=== PATIENT | male | born 1940 | race Caucasian/White ===

== ENCOUNTER 2020-09-19 08:35 | Outpatient (REF) | payer MEDICARE, SELFPAY ==
[2020-09-19 11:40] LABS: Hematocrit 47.9 % (42-52); Hemoglobin 15.6 g/dl (14.0-18.0); Mean Corpuscular HGB Conc 32.6 g/dl (31.0-36.0); Mean Corpuscular Hemoglobin 30.2 pg (27.0-33.0); Mean Corpuscular Volume 92.8 fL (80-98); Mean Platelet Volume 9.7 fL (9.4-12.4); Platelet Count 221 X10*3/uL (160-400); Red Blood Count 5.16 X10*6/uL (4.60-5.80); Red Cell Distribution Width 12.5 % (11.0-16.0); White Blood Count 6.8 X10*3/uL (4.8-10.8)
[2020-09-19 12:22] LABS: Alanine Aminotransferase 14 U/L (0-40); Albumin Level 4.2 g/dL (3.5-5.0); Alkaline Phosphatase 95 U/L (39-117); Anion Gap 14 (12-20); Aspartate Amino Transferase 15 U/L (5-37); Bilirubin Total 0.7 mg/dL (0.0-1.0); Blood Urea Nitrogen 16 mg/dL (9-16); Calcium 8.9 mg/dL (8.4-10.2); Carbon Dioxide 24 mmol/L (22-29); Chloride 105 mmol/L (96-108); Cholesterol 162 mg/dL; Estimated Glomerular Filt Rate > 60; Glucose Fasting 112 mg/dL (60-99); HDL Cholesterol 39 mg/dL; LDL Cholesterol Calculated 105 mg/dl; Potassium 4.4 mmol/L (3.3-5.1); Sodium 139 mmol/L (135-145); Triglycerides 94 mg/dL
[2020-09-19 12:46] LABS: Creatinine Urine 182.48 mg/dL; Microalbum/Creatinine Ratio Ur 5.4 ug/mg cr
[2020-09-19 12:58] LABS: Estimated Average Glucose 126 mg/dL
== END 2020-09-19 08:36 | disposition home or self-care (01) ==
LOC: HO.HMGCLDS 08:35
PROVIDERS: PCP Internal Medicine; Visit Provider Internal Medicine
DX: I10 Essential (primary) hypertension (principal); R73.9 Hyperglycemia, unspecified; E78.5 Hyperlipidemia, unspecified
CPT/HCPCS: 36415; 80053; 80061; 82043; 83036; 85027

== ENCOUNTER 2021-04-26 10:59 | Outpatient (REF) | payer MEDICARE, SELFPAY ==
[2021-04-26 14:18] LABS: Estimated Average Glucose 123 mg/dL; Hemoglobin A1c % 5.9 %
[2021-04-26 14:24] LABS: Alanine Aminotransferase 17 U/L (0-40); Albumin Level 4.3 g/dL (3.5-5.0); Alkaline Phosphatase 98 U/L (39-117); Anion Gap 10 (12-20); Aspartate Amino Transferase 15 U/L (5-37); Bilirubin Total 0.9 mg/dL (0.0-1.0); Blood Urea Nitrogen 19 mg/dL (9-16); Calcium 9.5 mg/dL (8.4-10.2); Carbon Dioxide 29 mmol/L (22-29); Chloride 104 mmol/L (96-108); Cholesterol 184 mg/dL; Estimated Glomerular Filt Rate > 60; Glucose Fasting 105 mg/dL (60-99); HDL Cholesterol 37 mg/dL; LDL Cholesterol Calculated 122 mg/dl; Potassium 4.3 mmol/L (3.3-5.1); Sodium 139 mmol/L (135-145); Total Protein 7.4 g/dL (6.5-8.0); Triglycerides 126 mg/dL
== END 2021-04-26 11:00 | disposition home or self-care (01) ==
LOC: HO.HMGCLDS 10:59
PROVIDERS: PCP Internal Medicine; Visit Provider Internal Medicine
DX: E78.5 Hyperlipidemia, unspecified (principal); I10 Essential (primary) hypertension; J44.9 Chronic obstructive pulmonary disease, unspecified; R73.9 Hyperglycemia, unspecified
CPT/HCPCS: 36415; 80053; 80061; 83036

== ENCOUNTER 2021-10-25 10:36 | Outpatient (REF) | payer MEDICARE, SELFPAY ==
[2021-10-25 13:43] LABS: MANUAL DIFF FLAG NO
[2021-10-25 13:56] LABS: Estimated Average Glucose 128 mg/dL; Hemoglobin A1c % 6.1 %
[2021-10-25 13:58] LABS: Basophils Percent Auto 0.6 % (0-2); Eosinophils Absolute Auto 0.1 X10*3/uL (0.0-0.4); Eosinophils Percent Auto 1.9 % (0-4); Hematocrit 46.9 % (42.0-52.0); Imm Gran Abs Auto 0.02 X10*3/uL (0.00-0.03); Imm Gran Pct Auto 0.4 % (0.0-0.4); Lymphocytes Absolute Auto 1.4 X10*3/uL (1.2-4.9); Lymphocytes Percent Auto 27.5 % (20-40); Mean Corpuscular Hemoglobin 29.9 pg (27.0-33.0); Mean Corpuscular Volume 93.6 fL (80.0-98.0); Mean Platelet Volume 9.8 fL (9.4-12.4); Monocytes Absolute Auto 0.5 X10*3/uL (0.1-1.2); Monocytes Percent Auto 10.3 % (2-11); Neutrophils Absolute Auto 3.1 x10*3/uL (2.0-8.3); Neutrophils Percent Auto 59.3 % (45-73); Platelet Count 198 X10*3/uL (160-400); Red Blood Count 5.01 X10*6/uL (4.60-5.80); Red Cell Distribution Width 13.1 % (11.0-16.0); White Blood Count 5.2 X10*3/uL (4.8-10.8)
[2021-10-25 14:05] LABS: Appearance Urine CLEAR; Color Urine YELLOW; Glucose Urine UA NEG (NEG); Leukocyte Esterase Urine NEG (NEG); Nitrite Urine NEG (NEG); PH 5.5 (5.0-8.0); Urine Blood 1+ (NEG); Urine Ketones NEG (NEG); Urine Protein NEG (NEG-TRACE)
[2021-10-25 14:15] LABS: Alanine Aminotransferase 26 U/L (0-40); Albumin Level 4.3 g/dL (3.5-5.0); Alkaline Phosphatase 86 U/L (39-117); Anion Gap 12 (12-20); Aspartate Amino Transferase 23 U/L (5-37); Blood Urea Nitrogen 16 mg/dL (9-16); Calcium 9.3 mg/dL (8.4-10.2); Carbon Dioxide 27 mmol/L (22-29); Chloride 105 mmol/L (96-108); Cholesterol 155 mg/dL; Estimated Glomerular Filt Rate > 60; Glucose Fasting 109 mg/dL (60-99); HDL Cholesterol 40 mg/dL; LDL Cholesterol Calculated 95 mg/dl; Potassium 4.8 mmol/L (3.3-5.1); Sodium 139 mmol/L (135-145); Total Protein 7.2 g/dL (6.5-8.0); Triglycerides 101 mg/dL
[2021-10-25 14:23] LABS: Squamous Epithelial Cell Urine TRACE /LPF; WBC Urine 0 /HPF (0-4)
== END 2021-10-25 10:37 | disposition home or self-care (01) ==
LOC: HO.HMGCLDS 10:36
PROVIDERS: PCP Internal Medicine; Visit Provider Internal Medicine
DX: I10 Essential (primary) hypertension (principal); J44.9 Chronic obstructive pulmonary disease, unspecified; R73.9 Hyperglycemia, unspecified; E78.5 Hyperlipidemia, unspecified
CPT/HCPCS: 36415; 80053; 80061; 81001; 83036; 85025

== ENCOUNTER 2023-01-24 11:15 | Outpatient (AMB) | payer MEDICARE, SELFPAY ==
[2023-01-24 12:15] VITALS: BP 120/80; PULSE 65; O2SAT 98; BMI 24.3
--- NOTE | 2023-01-24 12:15 | A.OFFPC_ITS ---
Vital Signs 01/24/23 12:15 Height 5 ft 10 in Weight 169 lb 8 oz BMI 24.3 BP 120/80 Blood Pressure Location Lt brachial Position Sitting Pulse 65 Pulse Source Pulse Oximeter Pulse Oximetry (%) 98 Oxygen Delivery Method Room Air Intake Visit Reasons: Follow up Health Concerns Allergies morphine Allergy (Severe, Verified 01/24/23 12:17) passed out Medication List - Last Reconciled 01/24/23 by Barbara Ray MD atorvastatin 40 mg PO DAILY lisinopril 10 mg PO DAILY omeprazole 20 mg PO DAILY tamsulosin 0.4 mg PO DAILY triamcinolone acetonide 0.1% APPLY topical 2 times a day; umeclidinium-vilanterol 62.5-25 mcg/actuation (Anoro Ellipta) 1 inh inhalation DAILY Tobacco use date assessed: 01/24/23 Fall risk assessment: No Falls in past year Last assessed Fall Risk: 01/24/23 Dental Screening Dental Screen Date: 01/24/23 Did you have a dental visit in the last 12 months?: Yes Did you have a dental problem in the last 6 months where you did not have access to dental care?: No Was dental information given to patient?: Patient has dentist HPI Follow up Health Concerns HPI Details Pt presents for the follow-up on hypertension hyperlipidemia controlled on current medications. Patient follows up with Cardiology at [facility] every 6 months for history of paroxysmal AFib and ascending aorta aneurysm. Patient has not been using Anoro regularly. [facility] Medical History GERD (gastroesophageal reflux disease) Abnormal colonoscopy CVA (cerebral vascular accident) Lung cancer AAA (abdominal aortic aneurysm) CAD (coronary artery disease) Syncope Peripheral artery disease COPD (chronic obstructive pulmonary disease) Hyperglycemia Hyperlipidemia Hypertension Surgical History No pertinent past surgical history Family History Father Unknown family medical history Mother Unknown family medical history Social History Housing: House Alcohol intake: current Alcohol intake frequency: does not drink Patient Tobacco Use Status: Former Tobacco user (19 years ago) e-Cigarette/Vaping Use: Never Used Current occupational status: retired Cognitive needs: No Hearing needs: Yes Vision needs: No Questionnaire PHQ-9 Over the last 2 weeks, how often have you been bothered by any of the following problems? 1. Little interest or pleasure in doing things: not at all 2. Feeling down, depressed, or hopeless: not at all 3. Trouble falling or staying asleep, or sleeping too much: not at all 4. Feeling tired or having little energy: not at all 5. Poor appetite or overeating: not at all 6. Feeling bad about yourself - or that you are a failure or have let yourself or your family down: not at all 7. Trouble concentrating on things, such as reading the newspaper or watching television: not at all 8. Moving or speaking so slowly that other people could have noticed. Or the opposite - being so fidgety or restless that you have been moving around a lot more than usual: not at all 9. Thoughts that you would be better off or of hurting yourself in some way: not at all Total score: 0 Depression Screening Interpretation: Negative Source: Developed by Drs. Umberto Limon, Lydia Sexton, Mauricio Holly and colleagues, with an educational bhumi from [employer]. Thrive Questionnaire Date Thrive assessed: 01/24/23 I am a: Patient What is your living situation today?: I have a steady place to live Within the past 12 months, did the food you bought not last and you didn't have the money to get more?: Never true Within the past 12 months, did you worry whether your food would run out before you got money to buy more?: Never true Do you have trouble paying for medicines?: No Do you have trouble getting transportation to medical appointments?: No Do you have trouble paying your heating and electricity bill?: No Do you have trouble taking care of your child, family member or friend?: No Do you have trouble with day-to-day activities such as bathing, preparing meals, shopping, managing finances, etc.?: No Are you currently unemployed and looking for a job?: No Are you interested in more education?: No Please select the resources that you would like help with: None AUDIT C Alcohol Use Questionnaire (AUDIT-C) 1. How often do you have a drink containing alcohol?: Never 3. How often do you have six or more drinks on one occasion?: Never Total Score: 0 FAMILIA-7 AMB Questionnaire FAMILIA-7 Date FAMILIA - 7 assessed: 01/24/23 Feeling nervous, anxious, or on edge: 0 = Not at all Not being able to stop or control worryin = Not at all Worrying too much about different things: 0 = Not at all Trouble relaxin = Not at all Being so restless that it is hard to sit still: 0 = Not at all Becoming easily annoyed or irritable: 0 = Not at all Feeling afraid as if something awful might happen: 0 = Not at all Total FAMILIA-7 score (0-4 normal; 5-9 mild; 10-14 moderate; 15-21 severe): 0 Source: Developed by Drs. Umberto Limon, Lydia Sexton, Mauricio Holly and colleagues, with an educational bhumi from [employer]. Review of Systems Const All systems reviewed & are unremarkable except as noted in HPI and below Reports no additional complaints Eyes Reports no additional complaints ENT Reports no additional complaints Card Reports no additional complaints Resp Reports no additional complaints GI Reports no additional complaints Physical exam (Primary Care) Vital Signs: Last Vital Signs Pulse 65 01/24/23 12:15 BP 152/88 H 01/24/23 12:15 Pulse Ox 98 01/24/23 12:15 Oxygen Delivery Method Room Air 01/24/23 12:15 BMI result Body Mass Index 24.3 Tobacco/Smoking Status: Tobacco use Status Tobacco use date assessed 01/24/23 01/24/23 12:21 Patient Tobacco Use Status Former Tobacco user (19 01/24/23 12:21 years ago) e-Cigarette/Vaping Use Never Used 01/24/23 12:21 PHQ-9: PHQ-9 Score PHQ-9: Total score 0 01/24/23 12:29 Depression Screening Interpretation: Negative Thrive Assessment: Date of Thrive Assessment Date Thrive assessed 01/24/23 01/24/23 12:29 Const General: no acute distress HENMT Head: Yes normal to inspection Eyes General: appearance normal, both eyes and all related structures Neck Neck: Yes supple Resp Effort & Inspection: normal respiratory effort Auscultation: wheezes and diminished lung sounds Cardio Rhythm: regular rhythm Heart sounds: S1 normal heart sound present and S2 normal heart sound present GI Inspection: Yes normal to inspection Palpation (GI): Soft to palpation Percussion: Yes normal to percussion Auscultation: normal bowel sounds Assessment and Plan Assessment & Plan (1) Hyperglycemia: Code(s): R73.9 - Hyperglycemia, unspecified Plan: Continue ADA diet check A1c (2) Hyperlipidemia: Code(s): E78.5 - Hyperlipidemia, unspecified Plan: Continue statin (3) Hypertension: Code(s): I10 - Essential (primary) hypertension Plan: Continue current medications Orders: Orders Comprehensive Met. Panel Today E78.5 - Hyperlipidemia, unspecified, I10 - Essential (primary) hypertension, R73.9 - Hyperglycemia, unspecified Complete Blood Count Auto Diff Today E78.5 - Hyperlipidemia, unspecified, I10 - Essential (primary) hypertension, R73.9 - Hyperglycemia, unspecified Hemoglobin A1c Today E78.5 - Hyperlipidemia, unspecified, I10 - Essential (primary) hypertension, R73.9 - Hyperglycemia, unspecified Medications: Refilled omeprazole 20 mg PO DAILY 90 caps 3RF tamsulosin 0.4 mg PO DAILY 90 caps 3RF triamcinolone acetonide 0.1% APPLY topical 2 times a day; 80 grams 3RF lisinopril 10 mg PO DAILY 90 tabs 3RF I10 - Essential (primary) hypertension atorvastatin 40 mg PO DAILY 90 tabs 3RF E78.5 - Hyperlipidemia, unspecified, I25.10 - Atherosclerotic heart disease of [place] coronary artery without angina pectoris Coding Level of Care Code Est Pt Level 4 (12565) Diagnoses Hyperglycemia R73.9 Hyperlipidemia E78.5 Hypertension I10
== END 2023-01-24 13:00 | disposition home or self-care (01) ==
PROVIDERS: PCP Internal Medicine; Visit Provider Internal Medicine
DX: R73.9 Hyperglycemia, unspecified (principal); E78.5 Hyperlipidemia, unspecified; I10 Essential (primary) hypertension
CPT/HCPCS: 99214

== ENCOUNTER 2023-01-25 06:26 | Outpatient (REF) | payer MEDICARE, SELFPAY ==
[2023-01-25 11:19] LABS: MANUAL DIFF FLAG NO
[2023-01-25 11:29] LABS: Appearance Urine Turbid; Color Urine Yellow; Glucose Urine UA Negative (Negative); Leukocyte Esterase Urine Negative (Negative); Nitrite Urine Negative (Negative); UMIC TRIGGER UA YES; Urine Blood Small (1+) (Negative); Urine Ketones Negative (Negative); Urine Protein Negative (Neg-Trace)
[2023-01-25 11:35] LABS: Bacteria Urine None Seen (None Seen); Hyaline Casts Urine 0-2 /LPF (0-2); Squamous Epithelial Cell Urine 0-2 /HPF (0-2); WBC Urine 0-5 /HPF (0-5)
[2023-01-25 11:39] LABS: Basophils Absolute Auto 0.1 X10*3/uL (0.0-0.2); Basophils Percent Auto 0.9 % (0-2); Eosinophils Absolute Auto 0.2 X10*3/uL (0.0-0.4); Eosinophils Percent Auto 3.1 % (0-4); Hematocrit 47.8 % (42.0-52.0); Hemoglobin 15.6 g/dl (14.0-18.0); Imm Gran Abs Auto 0.03 X10*3/uL (0.00-0.03); Imm Gran Pct Auto 0.5 % (0.0-0.4); Lymphocytes Absolute Auto 1.6 X10*3/uL (1.2-4.9); Lymphocytes Percent Auto 23.8 % (20-40); Mean Corpuscular HGB Conc 32.6 g/dl (31.0-36.0); Mean Corpuscular Volume 91.9 fL (80.0-98.0); Monocytes Absolute Auto 0.6 X10*3/uL (0.1-1.2); Monocytes Percent Auto 9.8 % (2-11); Neutrophils Percent Auto 61.9 % (45-73); Platelet Count 200 X10*3/uL (160-400); Red Cell Distribution Width 13.1 % (11.0-16.0); White Blood Count 6.5 X10*3/uL (4.8-10.8)
[2023-01-25 11:47] LABS: Estimated Average Glucose 117 mg/dL; Hemoglobin A1c % 5.7 % (<6.0)
[2023-01-25 12:37] LABS: PSA,Total (Free>4and<10) 4.03 ng/mL (0.00-4.00)
[2023-01-25 12:50] LABS: Alanine Aminotransferase 10 U/L (0-40); Alkaline Phosphatase 85 U/L (39-117); Anion Gap 11 (12-20); Aspartate Amino Transferase 15 U/L (5-37); Bilirubin Total 1.1 mg/dL (0.0-1.0); Blood Urea Nitrogen 14 mg/dL (9-16); Calcium 9.1 mg/dL (8.4-10.2); Carbon Dioxide 27 mmol/L (22-29); Chloride 107 mmol/L (96-108); Cholesterol 136 mg/dL (<200); Estimated Glomerular Filt Rate > 60; Glucose Fasting 98 mg/dL (60-99); Glucose Random 98 mg/dL (60-115); HDL Cholesterol 36 mg/dL (>40); LDL Cholesterol Calculated 80 mg/dL (<100); Potassium 4.2 mmol/L (3.3-5.1); Sodium 141 mmol/L (135-145); Total Protein 6.8 g/dL (6.5-8.0); Triglycerides 101 mg/dL (<150)
[2023-01-28 13:08] LABS: Free Prostate Spec Ag 0.6 ng/mL; Percent Free Prostate Spec Ag 17 % (calc) (>25); Prostate Specific Ag Total 3.5 ng/mL (< OR = 4.0)
== END 2023-01-25 06:27 | disposition home or self-care (01) ==
LOC: HO.HMGCLDS 06:26
PROVIDERS: PCP Internal Medicine; Visit Provider Internal Medicine
DX: I25.10 Atherosclerotic heart disease of native coronary artery without angina pectoris (principal); R73.9 Hyperglycemia, unspecified; E78.5 Hyperlipidemia, unspecified; I10 Essential (primary) hypertension; Z12.5 Encounter for screening for malignant neoplasm of prostate
CPT/HCPCS: 36415; 80053; 80061; 81001; 83036; 84153; 84154; 85025

== ENCOUNTER 2024-02-15 06:50 | Outpatient (REF) | payer MEDICARE, SELFPAY ==
[2024-02-15 11:08] LABS: MANUAL DIFF FLAG NO
[2024-02-15 11:11] LABS: Basophils Absolute Auto 0.1 X10*3/uL (0.0-0.2); Basophils Percent Auto 0.8 % (0-2); Eosinophils Absolute Auto 0.2 X10*3/uL (0.0-0.4); Eosinophils Percent Auto 2.6 % (0-4); Hematocrit 48.1 % (42.0-52.0); Hemoglobin 15.9 g/dl (14.0-18.0); Imm Gran Abs Auto 0.04 X10*3/uL (0.00-0.03); Imm Gran Pct Auto 0.6 % (0.0-0.4); Lymphocytes Absolute Auto 1.7 X10*3/uL (1.2-4.9); Lymphocytes Percent Auto 25.8 % (20-40); Mean Corpuscular HGB Conc 33.1 g/dl (31.0-36.0); Mean Corpuscular Hemoglobin 30.3 pg (27.0-33.0); Mean Corpuscular Volume 91.6 fL (80.0-98.0); Mean Platelet Volume 9.6 fL (9.4-12.4); Monocytes Absolute Auto 0.8 X10*3/uL (0.1-1.2); Monocytes Percent Auto 11.5 % (2-11); Neutrophils Absolute Auto 3.9 x10*3/uL (2.0-8.3); Neutrophils Percent Auto 58.7 % (45-73); Platelet Count 197 X10*3/uL (160-400); Red Blood Count 5.25 X10*6/uL (4.60-5.80); Red Cell Distribution Width 13.3 % (11.0-16.0); White Blood Count 6.6 X10*3/uL (4.8-10.8)
[2024-02-15 11:26] LABS: Appearance Urine Clear; Color Urine Yellow; Glucose Urine UA Negative (Negative); Leukocyte Esterase Urine Negative (Negative); Nitrite Urine Negative (Negative); PH 5.5 (5.0-9.0); Urine Blood Negative (Negative); Urine Ketones Negative (Negative); Urine Protein Negative (Neg-Trace)
[2024-02-15 12:12] LABS: Bacteria Urine None Seen (None Seen); Hyaline Casts Urine 0-2 /LPF (0-2); RBC Urine 0-2 /HPF (0-2); Squamous Epithelial Cell Urine 0-2 /HPF (0-2); WBC Urine 0-5 /HPF (0-5)
[2024-02-15 12:30] LABS: Alanine Aminotransferase 14 U/L (0-40); Alkaline Phosphatase 93 U/L (39-117); Anion Gap 12 (12-20); Aspartate Amino Transferase 15 U/L (5-37); Bilirubin Total 0.8 mg/dL (0.0-1.0); Blood Urea Nitrogen 20 mg/dL (9-16); Calcium 8.9 mg/dL (8.4-10.2); Carbon Dioxide 27 mmol/L (22-29); Chloride 106 mmol/L (96-108); Cholesterol 196 mg/dL (<200); Estimated Glomerular Filt Rate > 60; Glucose Fasting 106 mg/dL (60-99); HDL Cholesterol 35 mg/dL (>40); LDL Cholesterol Calculated 138 mg/dL (<100); Potassium 4.2 mmol/L (3.3-5.1); Sodium 141 mmol/L (135-145); Total Protein 6.7 g/dL (6.5-8.0); Triglycerides 119 mg/dL (<150)
== END 2024-02-15 06:51 | disposition home or self-care (01) ==
LOC: HO.HMGCLDS 06:50
PROVIDERS: PCP Internal Medicine; Visit Provider Internal Medicine
DX: R55 Syncope and collapse (principal); R73.9 Hyperglycemia, unspecified; E78.5 Hyperlipidemia, unspecified; I10 Essential (primary) hypertension
CPT/HCPCS: 36415; 80053; 80061; 81001; 85025

== ENCOUNTER 2024-02-18 10:38 | Outpatient (AMB) | payer MEDICARE, SELFPAY ==
[2024-02-18 10:46] VITALS: BP 128/66; PULSE 69; O2SAT 97; BMI 23.5
--- NOTE | 2024-02-18 10:46 | MHC.PC.OV ---
Vital Signs 02/18/24 10:46 Height 5 ft 10 in Weight 164 lb BMI 23.5 BP 128/66 Blood Pressure Location Rt brachial Position Sitting Pulse 69 Pulse Source Pulse Oximeter Pulse Oximetry (%) 97 Oxygen Delivery Method Room Air Intake Visit Reasons: Follow up Intake Note: Pt is here today for a follow up visit. Pt needs a refill on Omeprazole for 3 months supply with 3 refills. Allergies morphine Allergy (Severe, Verified 02/18/24 10:49) passed out Medication List - Last Reconciled 02/18/24 by Barbara Ray MD atorvastatin 40 mg PO DAILY lisinopril 10 mg PO DAILY omeprazole 20 mg PO DAILY tamsulosin 0.4 mg PO DAILY triamcinolone acetonide 0.1% APPLY topical 2 times a day; umeclidinium-vilanterol 62.5-25 mcg/actuation (Anoro Ellipta) 1 inh inhalation DAILY Tobacco use date assessed: 01/24/23 Fall risk assessment: No Falls in past year Last assessed Fall Risk: 02/18/24 Dental Screening Dental Screen Date: 02/18/24 Did you have a dental visit in the last 12 months?: Yes Did you have a dental problem in the last 6 months where you did not have access to dental care?: No Was dental information given to patient?: Patient has dentist HPI Follow up HPI Details Pt presents for f/u HTN, hyperlipid, COPD. PFSH Medical History GERD (gastroesophageal reflux disease) Abnormal colonoscopy CVA (cerebral vascular accident) Lung cancer AAA (abdominal aortic aneurysm) CAD (coronary artery disease) Syncope Peripheral artery disease COPD (chronic obstructive pulmonary disease) Hyperglycemia Hyperlipidemia Hypertension Surgical History No pertinent past surgical history Family History Father Unknown family medical history Mother Unknown family medical history Social History Housing: House Alcohol intake: current Alcohol intake frequency: does not drink Patient Tobacco Use Status: Former Tobacco user (19 years ago) e-Cigarette/Vaping Use: Never Used service: No Current occupational status: retired Cognitive needs: No Hearing needs: Yes Vision needs: No Questionnaire PHQ-9 Over the last 2 weeks, how often have you been bothered by any of the following problems? 1. Little interest or pleasure in doing things: not at all 2. Feeling down, depressed, or hopeless: not at all 3. Trouble falling or staying asleep, or sleeping too much: not at all 4. Feeling tired or having little energy: not at all 5. Poor appetite or overeating: not at all 6. Feeling bad about yourself - or that you are a failure or have let yourself or your family down: not at all 7. Trouble concentrating on things, such as reading the newspaper or watching television: not at all 8. Moving or speaking so slowly that other people could have noticed. Or the opposite - being so fidgety or restless that you have been moving around a lot more than usual: not at all 9. Thoughts that you would be better off or of hurting yourself in some way: not at all Total score: 0 Depression Screening Interpretation: Negative Depression Screening Done: Yes 29359 - PHQ-9 Billing: Yes Source: Developed by Drs. Umberto Limon, Lydia Sexton, Mauricio Holly and colleagues, with an educational bhumi from [employer]. Thrive Questionnaire Date Thrive assessed: 02/18/24 I am a: Patient What is your living situation today?: I have a steady place to live Within the past 12 months, did the food you bought not last and you didn't have the money to get more?: Never true Within the past 12 months, did you worry whether your food would run out before you got money to buy more?: Never true Do you have trouble paying for medicines?: No Do you have trouble getting transportation to medical appointments?: No Do you have trouble paying your heating and electricity bill?: No Do you have trouble taking care of your child, family member or friend?: No Do you have trouble with day-to-day activities such as bathing, preparing meals, shopping, managing finances, etc.?: No Are you currently unemployed and looking for a job?: No Are you interested in more education?: No Please select the resources that you would like help with: None Currently or been in a relationship where the following occur: No concerns reported THRIVE Score: 0 AUDIT C Alcohol Use Questionnaire (AUDIT-C) 1. How often do you have a drink containing alcohol?: Never 3. How often do you have six or more drinks on one occasion?: Never Total Score: 0 FAMILIA-7 AMB Questionnaire FAMILIA-7 Date FAMILIA - 7 assessed: 02/18/24 Feeling nervous, anxious, or on edge: 0 = Not at all Not being able to stop or control worryin = Not at all Worrying too much about different things: 0 = Not at all Trouble relaxin = Not at all Being so restless that it is hard to sit still: 0 = Not at all Becoming easily annoyed or irritable: 0 = Not at all Feeling afraid as if something awful might happen: 0 = Not at all Total FAMILIA-7 score (0-4 normal; 5-9 mild; 10-14 moderate; 15-21 severe): 0 Source: Developed by Drs. Umberto Limon, Lydia Sexton, Mauricio Holly and colleagues, with an educational bhumi from [employer]. FAMILIA-7 Assessment Billing FAMILIA-7 Assessment Tool: FAMILIA-7 Assessment 69046 Review of Systems Const All systems reviewed & are unremarkable except as noted in HPI and below Eyes Reports no additional complaints ENT Reports no additional complaints Card Reports no additional complaints Resp Reports no additional complaints GI Reports no additional complaints Reports no additional complaints Physical exam (Primary Care) Vital Signs: Last Vital Signs Pulse 69 02/18/24 10:46 BP 128/66 02/18/24 10:46 Pulse Ox 97 02/18/24 10:46 Oxygen Delivery Method Room Air 02/18/24 10:46 BMI result Body Mass Index 23.5 Tobacco/Smoking Status: Tobacco use Status Tobacco use date assessed 01/24/23 02/18/24 10:46 Patient Tobacco Use Status Former Tobacco user (19 02/18/24 10:46 years ago) e-Cigarette/Vaping Use Never Used 02/18/24 10:46 PHQ-9: PHQ-9 Score PHQ-9: Total score 0 02/18/24 11:28 Depression Screening Interpretation: Negative Thrive Assessment: Date of Thrive Assessment Date Thrive assessed 02/18/24 02/18/24 10:54 Currently or been in a relationship where the following occur: No concerns reported Const General: no acute distress HENMT Head: Yes normal to inspection Eyes General: appearance normal, both eyes and all related structures Resp Effort & Inspection: normal respiratory effort Auscultation: clear to auscultation bilaterally Cardio Rhythm: regular rhythm Heart sounds: S1 normal heart sound present and S2 normal heart sound present GI Inspection: Yes normal to inspection Palpation (GI): Soft to palpation Percussion: Yes normal to percussion Auscultation: normal bowel sounds Coding Level of Care Code Est Pt Level 4 (68450) Diagnoses CVA (cerebral vascular accident) I63.9 Lung cancer C34.90 AAA (abdominal aortic aneurysm) I71.4 Peripheral artery disease I73.9 COPD (chronic obstructive pulmonary disease) J44.9 Hyperlipidemia E78.5 Hypertension I10 Additional Codes FAMILIA-7 Assessment Billing - FAMILIA-7 Assessment Tool: FAMILIA-7 Assessment 60316 ([id number]) Assessment & Plan Assessment & Plan (1) CVA (cerebral vascular accident): Comment: right cerebellar, arachnoid cyst 1.[address]/MRI 2018 Code(s): I63.9 - Cerebral infarction, unspecified Category: Medical Plan: Continue aspirin and high dose of statin (2) Lung cancer: Comment: 2001 s/p lobectomy Code(s): C34.90 - Malignant neoplasm of unspecified part of unspecified bronchus or lung Category: Medical Plan: Cured (3) AAA (abdominal aortic aneurysm): Comment: EVAR 2014 , CT 09/2018 negative, f/u with Dr. Martin Doppler pantent stents 2020 Code(s): I71.4 - Abdominal aortic aneurysm, without rupture Category: Medical Plan: Follow-up with vascular surgeon (4) Peripheral artery disease: Code(s): I73.9 - Peripheral vascular disease, unspecified Category: Medical Plan: Follow-up with vascular surgeon (5) COPD (chronic obstructive pulmonary disease): Code(s): J44.9 - Chronic obstructive pulmonary disease, unspecified Category: Medical Plan: Patient declined using inhalers (6) Hyperlipidemia: Code(s): E78.5 - Hyperlipidemia, unspecified Category: Medical Plan: Continue statin (7) Hypertension: Code(s): I10 - Essential (primary) hypertension Category: Medical Plan: Continue lisinopril Orders: Orders Complete Blood Count Auto Diff 6 Months E78.5 - Hyperlipidemia, unspecified, I10 - Essential (primary) hypertension, R73.9 - Hyperglycemia, unspecified Comprehensive Cocoa. Panel Fast 6 Months E78.5 - Hyperlipidemia, unspecified, I10 - Essential (primary) hypertension, R73.9 - Hyperglycemia, unspecified Lipid Panel 6 Months E78.5 - Hyperlipidemia, unspecified, I10 - Essential (primary) hypertension, R73.9 - Hyperglycemia, unspecified Medications: Refilled omeprazole 20 mg PO DAILY 90 caps 3RF Discontinued umeclidinium-vilanterol 62.5-25 mcg/actuation (Anoro Ellipta) Discontinued Reason: Doctor's Order 1 inh inhalation DAILY 60 ea 4RF
== END 2024-02-18 11:34 | disposition home or self-care (01) ==
PROVIDERS: PCP Internal Medicine; Visit Provider Internal Medicine
DX: I71.40 Abdominal aortic aneurysm, without rupture, unspecified (principal); I73.9 Peripheral vascular disease, unspecified; J44.9 Chronic obstructive pulmonary disease, unspecified; C34.90 Malignant neoplasm of unspecified part of unspecified bronchus or lung; Z86.73 Personal history of transient ischemic attack (TIA), and cerebral infarction without residual deficits; E78.5 Hyperlipidemia, unspecified; I10 Essential (primary) hypertension

== ENCOUNTER → 2024-02-18 10:38 | Outpatient (BNVA) | payer MEDICARE, SELFPAY | PROVIDERS: PCP Internal Medicine; Visit Provider Internal Medicine | DX: I10 Essential (primary) hypertension (principal); I63.9 Cerebral infarction, unspecified; C34.90 Malignant neoplasm of unspecified part of unspecified bronchus or lung; I73.9 Peripheral vascular disease, unspecified; I71.40 Abdominal aortic aneurysm, without rupture, unspecified; J44.9 Chronic obstructive pulmonary disease, unspecified; E78.5 Hyperlipidemia, unspecified | CPT/HCPCS: 96127; 99212 ==

== ENCOUNTER 2024-08-18 10:58 | Outpatient (AMB) | payer MEDICARE, SELFPAY ==
[2024-08-18 11:30] VITALS: BP 124/74; PULSE 70; RESP 20; TEMP 36.7; O2SAT 95; BMI 24.4
--- NOTE | 2024-08-18 11:30 | MHC.PC.OV ---
Vital Signs 08/18/24 11:30 Height 5 ft 10 in Weight 170 lb BMI 24.4 BP 124/74 Blood Pressure Location Lt brachial Position Sitting Respiration 20 Pulse 70 Pulse Source Pulse Oximeter Temp 98.0 F Temp Source Oral Pulse Oximetry (%) 95 Oxygen Delivery Method Room Air Intake Visit Reasons: 6 months f/up Intake Note: Pt is here today for 6 months follow up visit. Pt needs refill on his medication. Pt states that he is fasting now and he would like to have blood work done today. Allergies morphine Allergy (Severe, Verified 08/18/24 11:30) passed out Medication List - Last Reconciled 08/18/24 by Barbara Ray MD atorvastatin 40 mg PO DAILY lisinopril 10 mg PO DAILY omeprazole 20 mg PO DAILY tamsulosin 0.4 mg PO DAILY triamcinolone acetonide 0.1% APPLY topical 2 times a day; Tobacco use date assessed: 08/18/24 Fall risk assessment: No Falls in past year Last assessed Fall Risk: 08/18/24 Dental Screening Dental Screen Date: 08/18/24 Did you have a dental visit in the last 12 months?: Yes Did you have a dental problem in the last 6 months where you did not have access to dental care?: No Was dental information given to patient?: Patient has dentist HPI 6 months f/up HPI Details Pt presents for f/u HTN, hyperlipid, BPH, stable on meds. Pt c/o sinus pressure and pain and postnasal drip for 1 month. Patient denies cough fever chills shortness of breath. PFSH Medical History GERD (gastroesophageal reflux disease) Abnormal colonoscopy CVA (cerebral vascular accident) Lung cancer AAA (abdominal aortic aneurysm) CAD (coronary artery disease) Syncope Peripheral artery disease COPD (chronic obstructive pulmonary disease) Hyperglycemia Hyperlipidemia Hypertension Surgical History No pertinent past surgical history Family History Father Unknown family medical history Mother Unknown family medical history Social History Housing: House Alcohol intake: current Alcohol intake frequency: does not drink Patient Tobacco Use Status: Former Tobacco user e-Cigarette/Vaping Use: Never Used service: No Current occupational status: retired Cognitive needs: No Hearing needs: Yes Vision needs: No Questionnaire PHQ-9 Over the last 2 weeks, how often have you been bothered by any of the following problems? 1. Little interest or pleasure in doing things: not at all 2. Feeling down, depressed, or hopeless: not at all 3. Trouble falling or staying asleep, or sleeping too much: not at all 4. Feeling tired or having little energy: not at all 5. Poor appetite or overeating: not at all 6. Feeling bad about yourself - or that you are a failure or have let yourself or your family down: not at all 7. Trouble concentrating on things, such as reading the newspaper or watching television: not at all 8. Moving or speaking so slowly that other people could have noticed. Or the opposite - being so fidgety or restless that you have been moving around a lot more than usual: not at all 9. Thoughts that you would be better off or of hurting yourself in some way: not at all Total score: 0 Depression Screening Interpretation: Negative Depression Screening Done: Yes 41041 - PHQ-9 Billing: Yes Source: Developed by Drs. Umberto Limon, Lydia Sexton, Mauricio Holly and colleagues, with an educational bhumi from [employer]. Thrive Questionnaire Date Thrive assessed: 08/18/24 I am a: Patient What is your living situation today?: I have a steady place to live Within the past 12 months, did the food you bought not last and you didn't have the money to get more?: Never true Within the past 12 months, did you worry whether your food would run out before you got money to buy more?: Never true Do you have trouble paying for medicines?: No Do you have trouble getting transportation to medical appointments?: No Do you have trouble paying your heating and electricity bill?: No Do you have trouble taking care of your child, family member or friend?: No Do you have trouble with day-to-day activities such as bathing, preparing meals, shopping, managing finances, etc.?: No Are you currently unemployed and looking for a job?: No Are you interested in more education?: No Please select the resources that you would like help with: None THRIVE Score: 0 AUDIT C Alcohol Use Questionnaire (AUDIT-C) 1. How often do you have a drink containing alcohol?: Never 3. How often do you have six or more drinks on one occasion?: Never Total Score: 0 FAMILIA-7 AMB Questionnaire FAMILIA-7 Date FAIMLIA - 7 assessed: 08/18/24 Feeling nervous, anxious, or on edge: 0 = Not at all Not being able to stop or control worryin = Not at all Worrying too much about different things: 0 = Not at all Trouble relaxin = Not at all Being so restless that it is hard to sit still: 0 = Not at all Becoming easily annoyed or irritable: 0 = Not at all Feeling afraid as if something awful might happen: 0 = Not at all Total FAMILIA-7 score (0-4 normal; 5-9 mild; 10-14 moderate; 15-21 severe): 0 Source: Developed by Drs. Umberto Limon, Lydia Sexton, Mauricio Holly and colleagues, with an educational bhumi from [employer]. FAMILIA-7 Assessment Billing FAMILIA-7 Assessment Tool: FAMILIA-7 Assessment 91474 Review of Systems Const All systems reviewed & are unremarkable except as noted in HPI and below Eyes Reports no additional complaints ENT Reports no additional complaints Card Reports no additional complaints Resp Reports no additional complaints GI Reports no additional complaints Reports no additional complaints Physical exam (Primary Care) Vital Signs: Last Vital Signs Temp 98.0 F 08/18/24 11:30 Pulse 70 08/18/24 11:30 Resp 20 08/18/24 11:30 BP 124/74 08/18/24 11:30 Pulse Ox 95 08/18/24 11:30 Oxygen Delivery Method Room Air 08/18/24 11:30 BMI result Body Mass Index 24.4 Tobacco/Smoking Status: Tobacco use Status Tobacco use date assessed 08/18/24 08/18/24 11:38 Patient Tobacco Use Status Former Tobacco user 08/18/24 11:38 e-Cigarette/Vaping Use Never Used 08/18/24 11:38 PHQ-9: PHQ-9 Score PHQ-9: Total score 0 08/18/24 11:38 Depression Screening Interpretation: Negative Thrive Assessment: Date of Thrive Assessment Date Thrive assessed 08/18/24 08/18/24 11:38 Const General: no acute distress HENMT Head: Yes normal to inspection Eyes General: appearance normal, both eyes and all related structures Neck Neck: Yes no lymphadenopathy and Yes supple Resp Effort & Inspection: normal respiratory effort Auscultation: rhonchi and diminished lung sounds Cardio Rhythm: regular rhythm Heart sounds: S1 normal heart sound present and S2 normal heart sound present GI Inspection: Yes normal to inspection Palpation (GI): Soft to palpation Percussion: Yes normal to percussion Auscultation: normal bowel sounds Coding Level of Care Code Est Pt Level 4 (43488) Complex EM visit Add On G2211 Diagnoses Hypertension I10 Hyperlipidemia E78.5 CVA (cerebral vascular accident) I63.9 Lung cancer C34.90 AAA (abdominal aortic aneurysm) I71.4 Peripheral artery disease I73.9 COPD (chronic obstructive pulmonary disease) J44.9 Additional Codes FAMILIA-7 Assessment Billing - FAMILIA-7 Assessment Tool: FAMILIA-7 Assessment 40464 ([id number]) PHQ-9 - 39941 - PHQ-9 Billing: Yes ([id number]) Assessment & Plan Assessment & Plan (1) Hypertension: Code(s): I10 - Essential (primary) hypertension Category: Medical Plan: Continue Lisinopril (2) Hyperlipidemia: Code(s): E78.5 - Hyperlipidemia, unspecified Category: Medical Plan: Continue statin (3) CVA (cerebral vascular accident): Comment: right cerebellar, arachnoid cyst 1.[address]/MRI 2018 Code(s): I63.9 - Cerebral infarction, unspecified Category: Medical Plan: Continue current medications (4) Lung cancer: Comment: 2001 s/p lobectomy Code(s): C34.90 - Malignant neoplasm of unspecified part of unspecified bronchus or lung Category: Medical Plan: Follow-up with thoracic surgeon (5) AAA (abdominal aortic aneurysm): Comment: EVAR 2014 , CT 09/2018 negative, f/u with Dr. Martin Doppler patent stents 2020, established with vascular surgeon Code(s): I71.4 - Abdominal aortic aneurysm, without rupture Category: Medical Plan: Follow-up with vascular surgeon (6) Peripheral artery disease: Code(s): I73.9 - Peripheral vascular disease, unspecified Category: Medical Plan: Continue current medications follow-up with vascular surgeon (7) COPD (chronic obstructive pulmonary disease): Code(s): J44.9 - Chronic obstructive pulmonary disease, unspecified Category: Medical Plan: Restart Trelegy and use albuterol p.r.n. Orders: Orders Lipid Panel 1 Year E78.5 - Hyperlipidemia, unspecified, I10 - Essential (primary) hypertension Comprehensive [place]. Panel Fast 1 Year E78.5 - Hyperlipidemia, unspecified, I10 - Essential (primary) hypertension Complete Blood Count Auto Diff 1 Year E78.5 - Hyperlipidemia, unspecified, I10 - Essential (primary) hypertension Medications: New albuterol sulfate 90 mcg/actuation 2 puffs inhalation Q6H PRN 8.5 grams 3RF shortness of breath or wheezing azithromycin For 250 mg dose pack: take 500 mg today (day 1), then 250 mg for 4 days (days 2-5) PO 6 tabs 0RF Trelegy Ellipta 100-62.5-25 mcg (luczvstwbet-tcgydnhak-yizrgnmm) 1 inh inhalation DAILY 180 ea 3RF NS Refilled omeprazole 20 mg PO DAILY 90 caps 3RF atorvastatin 40 mg PO DAILY 90 tabs 3RF E78.5 - Hyperlipidemia, unspecified, I25.10 - Atherosclerotic heart disease of habematolel coronary artery without angina pectoris lisinopril 10 mg PO DAILY 90 tabs 3RF I10 - Essential (primary) hypertension tamsulosin 0.4 mg PO DAILY 90 caps 3RF
--- OUTSIDE RECORDS SUMMARY | 2024-08-18 13:26 | XMS_ITS | Clinical Summary ---
Author Organization [facility] Address [address] [place] [address] Care Team Providers Care Marriage And Family Therapist Name Role Phone Barbara Ray MD Primary Care Provider Surgical History Surgery Date Site/Laterality Comments OTHER SURGICAL HISTORY 07/2014 PROCEDURE: HISTORICAL AAA REPAIR; COMMENT: EVAR OTHER SURGICAL HISTORY Left PROCEDURE: HISTORY OTHER; COMMENT: pulmonary lobectomy for lung cancer CORONARY ARTERY BYPASS GRAFT 10/2016 PROCEDURE: HISTORICAL CABG; COMMENT: x 3 Medical History Medical History Date Comments Benign prostatic hyperplasia with urinary obstruction 07/24/2016 DX:Benign prostatic hyperpla monique with urinary obstruction CAD (coronary artery disease) DX :CAD (coronary artery disease); COMMENT: CABG x3 10/2016 Chronic back pain DX:Chronic kailey k pain Chronic headache DX:Chronic head ache Chronic obstructive pulmonar y disease (CMS/HCC V24, CMS/HCC V28) 07/11/2017 DX:Chronic obstructive pulm onary disease (HCC) Colon polyp 09/18/2017 DX:Colon polyp Diverticulosis 07/11/2017 DX:Diverticulosi s; COMMENT: Severe sigmoid diverticulosis Hepatic cyst 12/22/2018 DX:Hepatic cyst; COMMENT: CT 05/2018 History of lung cancer 04/11/2015 DX:Histor y of lung cancer; COMMENT: S/p L lobectomy History of stroke DX:History of stroke Hyperlipidemia DX:Hyperlipidemi a Hypertension DX:Hypertension Internal hemorrhoids 09/18/2017 DX:Internal hemorrhoids Pulmonary nodule 12/22/2018 DX:Pulmonary no dule; COMMENT: CT 05/2018 5mm base of right lung Right inguinal hernia 10/16/2018 DX:Right i nguinal hernia S/P AAA (abdominal aortic an eurysm) repair DX:S/P AAA (abdominal aortic aneurysm) repair; COMMENT: Stable CT as of 05/2018, repeat one year Umbilical hernia without obs truction and without gangrene 10/16/2018 DX:Umbilical hernia without obstruction and without gangrene Social History Tobacco Use Types Packs/Day Years Used Date Smoking Tobacco: Never Smokeless Tobacco: Never Alcohol Use Standard Drinks/Week Comments Yes 0 (1 standard drink = 0.6 oz pur e alcohol) Sex and Gender Information Value Date Recorded Sex Assigned at Not on file Legal Sex Male 10:25 PM EST Gender Identity Not on file Sexual Orientation Not on file Obstetrics History Plan of Treatment Health Maintenance Due Date Last Done Comments DTaP,Tdap,and Td Vaccines (1 - Tdap) 1959 Hepatitis A Vaccines (1 of 2 - Risk 2-dose series) 1959 Pneumococcal Vaccine: 50+ Ye ars (1 of 2 - PCV) 1960 Zoster Vaccines (1 of 2) 11/14/1991 Hepatitis B Vaccines (1 of 3 - Risk 3-dose series) 2001 RSV Immunization Adult Patie nts (1 - 1-dose 75+ series) 2016 Cholesterol Screening (Lipid Panel) 04/08/2022 Depression Screening 04/08/2022 Falls Risk Assessment 04/08/2022 Social Influencers of Health Screening 04/08/2022 Hypertension/CHF/CAD Annual BMP Blood Test 04/20/2022 COVID-19 Vaccine ( - 2023-2 5 season) 2024 Influenza Vaccine (Season Ended) 2025 HIB Vaccines Aged Out No longer eligi ble based on patient's age to complete this topic HPV Vaccines Aged Out No longer eligi ble based on patient's age to complete this topic IPV Vaccines Aged Out No longer eligi ble based on patient's age to complete this topic MMR Vaccines Aged Out No longer eligi ble based on patient's age to complete this topic Meningococcal ACWY Vaccine Aged Out N o longer eligible based on patient's age to complete this topic Meningococcal B Vaccine Aged Out No l onger eligible based on patient's age to complete this topic RSV Immunization Patients Un keri 20 months Aged Out No longer eligible b ased on patient's age to complete this topic Varicella Vaccines Aged Out No longer eligible based on patient's age to complete this topic Advance Directives Documents on File Type Date Recorded Patient Manager Simulation Expl anation Health Care Decision (hx) 04/23/2016 AD WALKER DIRECTIVE Health Care Decision (hx) 04/23/2016 AD WALKER DIRECTIVE Health Care Decision (hx) 04/23/2016 AD WALKER DIRECTIVE Health Care Decision (hx) 04/23/2016 AD WALKER DIRECTIVE Health Care Decision (hx) 04/23/2016 AD WALKER DIRECTIVE Care Teams Marriage And Family Therapist Relationship Specialty Start Date End Date Barbara Ray MD PCP - General Internal Medicine 09/04/18
--- OUTSIDE RECORDS SUMMARY | 2024-08-18 13:26 | XMS_ITS | Encounter Summary ---
Author Organization [facility] Address [address] [place] [address] Care Team Providers Care Handstitching Machine Armhole Feller Name Role Phone Pcp, No Unavailable Unavailable Keith Gatica DO Unavailable [phone] Pcp, No Primary Care Provider Unavailabl e Encounter Details Date Type Department Care Team (Late st Contact Info) Description 02/26/2017 Abstract [facility] [place] [address] Samantha Mccoy, KIRSTEN [address] [address] Social History Tobacco Use Types Packs/Day Years Used Date Smoking Tobacco: Former Cigarettes 2 40 0 09/27/1966 - 09/27/2006 Smokeless Tobacco: Former Alcohol Use Standard Drinks/Week Comments No 0 (1 standard drink = 0.6 oz pur e alcohol) quit 1984 Sex and Gender Information Value Date Recorded Sex Assigned at Not on file Gender Identity Not on file Sexual Orientation Not on file documented as of this encounter Plan of Treatment Not on file documented as of this encounter Visit Diagnoses Not on filedocumented in this encounter Care Teams Handstitching Machine Armhole Feller Relationship Specialty Start Date End Date Pcp, No PCP - General General Medicine 10/26/16 Pcp, No Physician General Medicine 10/24/16 Keith Gatica DO [address] [place] [id number] Hand Decorator Cardiovascular Disease 10/24/16 documented as of this encounter
--- OUTSIDE RECORDS SUMMARY | 2024-08-18 13:26 | XMS_ITS | Encounter Summary ---
Author Organization [facility] Address [address] [place] [address] Care Team Providers Care Sweet Dough Mixer Name Role Phone Pcp, No Primary Care Provider Unavailabl e Pcp, No Unavailable Unavailable Keith Gatica DO Unavailable [phone] Pcp, No Primary Care Provider Unavailabl e Encounter Details Date Type Department Care Team (Late st Contact Info) Description 09/27/2016 Abstract [facility] [place] [address] Samantha Mccoy, RN [address] [place] [address] Social History Tobacco Use Types Packs/Day Years Used Date Smoking Tobacco: Former Cigarettes 2 40 0 09/27/1966 - 09/27/2006 Alcohol Use Standard Drinks/Week Comments No 0 [...] on filedocumented in this encounter Care Teams Sweet Dough Mixer Relationship Specialty Start Date End Date Pcp, No PCP - General General Medicine 09/25/16 10/21/16 Pcp, No PCP - General General Medicine 10/26/16 Pcp, No Physician General Medicine 10/24/16 Keith Gatica DO [address] [place] [address] Dietitian Cardiovascular Disease 10/24/16 documented as of this encounter
--- OUTSIDE RECORDS SUMMARY | 2024-08-18 13:26 | XMS_ITS | Clinical Summary ---
Author Organization [facility] Address [address] [place] [address] Care Team Providers Care Plumbing Engineering Draftsperson Name Role Phone Pcp, No Unavailable Unavailable Keith Gatica DO Unavailable [phone] Pcp, No Primary Care Provider Unavailabl e Allergies Active Allergy Reactions Criticality Noted Date Comments Morphine Other (See Comments) Medium 09/27/2016 ? Chest pain however patient found afterwards to have CAD Medications Medication Sig Dispensed Refills Start Date End Date Status aspirin enteric coated (ECOTRIN LOW STRENGTH) 81 MG EC tablet Take 81 mg by mouth daily. Active atorvastatin (LIPITOR) 40 MG tabletIndications:M ixed Dyslipidemia Take 40 mg by mouth daily Indications: Elevation of Both Cholesterol and Triglycerides in Blood. Active tamsulosin (FLOMAX) 0.4 MG capsuleIndications: Benign Prostatic Hypertrophy Take 0.4 mg by mouth daily Indications: Enlarged Prostate. Active atenolol (TENORMIN) 25 MG tabletIndications:C AD, multiple vessel Take 0.5 tablets (12.5 mg total) by mouth every 12 (twelve) hours around the clock. 30 tablet 1 11/03/2016 Active oxyCODONE-acetamino phen (PERCOCET) 2.5-325 MG per tabletIndications:C AD, multiple vessel 1-2 tabs orally every 6-8 hours as needed for pain 60 tablet 0 11/03/2016 Active Active Problems Problem Noted Date Diagnosed Date S/P CABG x 3 11/02/2016 CAD, multiple vessel 10/30/2016 Family History Medical History Relation Name Comments No Known Problems Father No Known Problems Mother Relation Name Status Comments Father Mother Social History Tobacco Use Types Packs/Day Years Used Date Smoking Tobacco: Former Cigarettes 2 40 0 09/27/1966 - 09/27/2006 Smokeless Tobacco: Former Alcohol Use Standard Drinks/Week Comments No 0 (1 standard drink = 0.6 oz pur e alcohol) quit 1984 Sex and Gender Information Value Date Recorded Sex Assigned at Not on file Gender Identity Not on file Sexual Orientation Not on file Last Filed Vital Signs Vital Sign Reading Time Taken Comments Blood Pressure 115/62 12/07/2016 9:00 AM EDT Pulse 53 12/07/2016 9:00 AM EDT Temperature 35.6 ??C (96.1 ??F) 12/07/2016 9:00 AM ED T Respiratory Rate 16 12/07/2016 9:00 AM EDT Oxygen Saturation 98% 12/07/2016 9:00 AM EDT Inhaled Oxygen Concentration - - Weight 73.5 kg (162 lb) 12/07/2016 9:00 AM EDT Height 177.8 cm (5' 10 ) 12/07/2016 9:00 AM EDT Body Mass Index 23.24 12/07/2016 9:00 AM EDT Plan of Treatment Health Maintenance Due Date Last Done Comments DTaP/Tdap/Td Vaccines (1 - Tdap) 1959 Pneumococcal Vaccines 50+ (1 of 2 - PCV) 1960 Zoster (Shingles) Vaccine (1 of 2) 11/14/1991 RSV Vaccine 60 years and old er and Patients (1 - 1-dose 75+ series) 2016 Influenza Vaccine 12/05/2023 COVID-19 Vaccine (1 - 2023-2 5 season) 2024 Hepatitis B Vaccines Aged Out No long er eligible based on patient's age to complete this topic Advance Directives * Full Code (Latest Code Status on File) Date Activated Date Inactivated Comments 10/30/2016 11:37 AM 11/03/2016 6:08 PM Care Teams Plumbing Engineering Draftsperson Relationship Specialty Start Date End Date Pcp, No PCP - General General Medicine 10/26/16 Pcp, No Physician General Medicine 10/24/16 Keith Gatica DO [address] [place] [address] Corporate Director Of Human Resources Cardiovascular Disease 10/24/16
--- OUTSIDE RECORDS SUMMARY | 2024-08-18 13:26 | XMS_ITS | Encounter Summary ---
Author Organization [facility] Address [address] [place] [address] Care Team Providers Care Global Chief Experience Officer Name Role Phone Pcp, No Primary Care Provider Unavailabl e Pcp, No Unavailable Unavailable Keith Gatica DO Unavailable [phone] Pcp, No Primary Care Provider Unavailabl e Encounter Details Date Type Department Care Team (Late st Contact Info) Description 09/26/2016 Scanned Document [facility] [place] [address] Naila Jauregui MD [address] [address] Social History Tobacco Use Types Packs/Day Years Used Date Smoking Tobacco: Never Assessed Sex and Gender Information Value Date Recorded Sex Assigned at Not on file Gender Identity Not on file Sexual Orientation Not on file documented as of this encounter Plan of Treatment Not on file documented as of this encounter Visit Diagnoses Not on filedocumented in this encounter Care Teams Global Chief Experience Officer Relationship Specialty Start Date End Date Pcp, No PCP - General General Medicine 09/25/16 10/21/16 Pcp, No PCP - General General Medicine 10/26/16 Pcp, No Physician General Medicine 10/24/16 Keith Gatica DO [address] [place] [address] Adult Remedial Education Instructor Cardiovascular Disease 10/24/16 documented as of this encounter
--- OUTSIDE RECORDS SUMMARY | 2024-08-18 13:26 | XMS_ITS | Encounter Summary ---
Author Organization [facility] Address [address] [place] [address] Care Team Providers Care Boomswing Operator Name Role Phone Pcp, No Primary Care Provider Unavailabl e Pcp, No Unavailable Unavailable Keith Gatica DO Unavailable [phone] Pcp, No Primary Care Provider Unavailabl e Encounter Details Date Type Department Care Team (Latest Contact Info) Description 10/04/2016 Prep for Surgery [facility] [place] [address] Samantha Mccoy, KIRSTEN [address] [place] [address] CAD, multiple vessel (Primary Dx); Preop testing Social History Tobacco Use Types Packs/Day Years [...] as of this encounter Plan of Treatment Scheduled Orders Name Type Priority Associated Diagnoses Orde r Schedule Type and Screen Blood Bank Routine CAD, multiple vessel Preop testing Ordered: 10/08/2016 documented as of this encounter Procedures Procedure Name Priority Date/Time Associated Diagnosis Comments COMPLETE BLOOD COUNT, WITH DIFFERENTIAL Routine 10/22/2016 1:02 PM EDT CAD, multiple vessel Preop testing PROTIME-INR Routine 10/22/2016 1:02 PM EDT CAD, multiple vessel Preop testing BASIC METABOLIC PANEL Routine 10/22/2016 1:02 PM EDT CAD, multiple vessel Preop testing documented in this encounter Results * Protime-INR (10/22/2016 1:02 PM EDT) INR 1.0 [facility] Comment: Reference Range ? 0.9-1.1 Moderate-intensity Warfarin Therapy 2.0-3.0 Higher-intensity Warfarin Therapy ?? 3.0-4.0 Prothrombin Time (PT) 10.6 9.0 - 11.5 sec [facility] Comment: For more information on this test, go to: http://education.Quack/faq/BLN747 Blood specimen (specimen) Blood specimen / Unknown 10/22/2016 1:02 PM EDT 10/22/2016 1:02 PM EDT Narrative [facility] - 10/23/2016 6:25 AM EDT FASTING:NO Resulting Agency Comment Performing Organization Information: ?Site ID: [id number] ?Name: [facility] ?Address: [address] [place] [address], [place] [address] ?Director: Sumaya Sheldon MD Naila Jauregui MD LAB BLOOD ORDERABLES [facility] [address] [place] [address], [place] [address] * Basic Metabolic Panel (10/22/2016 1:02 PM EDT) Glucose 99 65 - 99 mg/dL [facility] Comment: ? Fasting reference interval Blood Urea Nitrogen (BUN) 19 7 - 25 mg/dL [facility] Creatinine 1.01 0.70 - 1.18 mg/dL [facility] Comment: For patients >49 years of age, the reference limit for Creatinine is approximately 13% higher for people identified as -Martiniquais. eGFR Non- 73 > OR = 60 mL/min/1 .73m2 [facility] eGFR 85 > OR = 60 mL/min/1 .73m2 [facility] BUN/Creatinine Ratio NOT APPLICABLE 6 - 22 (calc) [facility] Sodium 138 135 - 146 mmol/L [facility] Potassium 4.4 3.5 - 5.3 mmol/L [facility] Chloride 104 98 - 110 mmol/L [facility] CO2 27 20 - 31 mmol/L [facility] Calcium 9.3 8.6 - 10.3 mg/dL [facility] Blood specimen (specimen) Blood specimen / Unknown 10/22/2016 1:02 PM EDT 10/22/2016 1:02 PM EDT Narrative [facility] - 10/23/2016 6:25 AM EDT FASTING:NO Resulting Agency Comment Performing Organization Information: ?Site ID: [id number] ?Name: [facility] ?Address: [address] [place] [phone] ?Director: Sumaya Sheldon MD Naila Jauregui MD LAB BLOOD ORDERABLES [facility] [address] [place] [address] * Complete Blood Count, with Differential (10/22/2016 1:02 PM EDT) White Blood Cell Count 7.2 3.8 - 10.8 Thousand/u L [facility] Red Blood Cell Count 4.98 4.20 - 5.80 Million/uL [facility] Hemoglobin 15.1 13.2 - 17.1 g/dL [facility] Hematocrit 44.8 38.5 - 50.0 % [facility] MCV 90.1 80.0 - 100.0 fL [facility] MCH 30.4 27.0 - 33.0 pg [facility] MCHC 33.7 32.0 - 36.0 g/dL [facility] RDW 14.0 11.0 - 15.0 % [facility] Platelet Count 210 140 - 400 Thousand/u L [facility] MPV 8.4 7.5 - 12.5 fL [facility] Abs Neutrophils Auto 4,486 1,500 - 7,800 cells/uL [facility] Abs Lymphocytes Auto 2,038 850 - 3,900 cells/uL [facility] Abs Monocytes Auto 490 200 - 950 cells/uL [facility] Abs Eosinophils Auto 130 15 - 500 cells/uL [facility] Abs Basophils Auto 58 0 - 200 cells/uL [facility] Neutrophils Auto 62.3 % [facility] Lymphocytes Auto 28.3 % [facility] Monocytes Auto 6.8 % [facility] Eosinophils Auto 1.8 % [facility] Basophils Auto 0.8 % [facility] Blood specimen (specimen) Blood specimen / Unknown 10/22/2016 1:02 PM EDT 10/22/2016 1:02 PM EDT Narrative [facility] - 10/23/2016 6:25 AM EDT FASTING:NO Resulting Agency Comment Performing Organization Information: ?Site ID: [id number] ?Name: [employer] ?Address: [address] [place] [address], [place] [address] ?Director: Sumaya Sheldon MD Naial Jauregui MD LAB BLOOD ORDERAB[facility] [address], [place], [place] [id number] documented in this encounter Visit Diagnoses Diagnosis CAD, multiple vessel- Primary Preop testing Unspecified pre-operative examination documented in this encounter Care Teams Boomswing Operator Relationship Specialty Start Date End Date Pcp, No PCP - General General Medicine 09/25/16 10/21/16 Pcp, No PCP - General General Medicine 10/26/16 Pcp, No Physician General Medicine 10/24/16 Keith Gatica DO [address] [place] [address] Administrative Analyst Cardiovascular Disease 10/24/16 documented as of this encounter
== END 2024-08-18 12:08 | disposition home or self-care (01) ==
LOC: HO.HMCC 10:58
PROVIDERS: PCP Internal Medicine; Visit Provider Internal Medicine
DX: I71.40 Abdominal aortic aneurysm, without rupture, unspecified (principal); I63.9 Cerebral infarction, unspecified; C34.90 Malignant neoplasm of unspecified part of unspecified bronchus or lung; J44.9 Chronic obstructive pulmonary disease, unspecified; I73.9 Peripheral vascular disease, unspecified; I10 Essential (primary) hypertension; E78.5 Hyperlipidemia, unspecified; Z23 Encounter for immunization

== ENCOUNTER 2024-08-18 10:58 | Outpatient (REF) | payer MEDICARE, SELFPAY ==
[2024-08-18 13:31] LABS: MANUAL DIFF FLAG NO
[2024-08-18 13:38] LABS: Basophils Absolute Auto 0.1 X10*3/uL (0.0-0.2); Eosinophils Absolute Auto 0.1 X10*3/uL (0.0-0.4); Eosinophils Percent Auto 1.7 % (0-4); Imm Gran Pct Auto 1.6 % (0.0-0.4); Lymphocytes Absolute Auto 1.7 X10*3/uL (1.2-4.9); Lymphocytes Percent Auto 26.3 % (20-40); Mean Corpuscular HGB Conc 33.3 g/dl (31.0-36.0); Mean Corpuscular Hemoglobin 30.4 pg (27.0-33.0); Mean Corpuscular Volume 91.1 fL (80.0-98.0); Mean Platelet Volume 9.5 fL (9.4-12.4); Monocytes Absolute Auto 0.6 X10*3/uL (0.1-1.2); Monocytes Percent Auto 9.8 % (2-11); Neutrophils Absolute Auto 3.8 x10*3/uL (2.0-8.3); Neutrophils Percent Auto 59.6 % (45-73); Platelet Count 191 X10*3/uL (160-400); Red Blood Count 5.27 X10*6/uL (4.60-5.80); Red Cell Distribution Width 12.8 % (11.0-16.0); White Blood Count 6.3 X10*3/uL (4.8-10.8)
[2024-08-18 14:25] LABS: Anion Gap 12 (12-20)
[2024-08-18 14:30] LABS: Alanine Aminotransferase 17 U/L (0-40); Aspartate Amino Transferase 25 U/L (5-37); Bilirubin Total 0.9 mg/dL (0.0-1.0); Blood Urea Nitrogen 21 mg/dL (9-16); Carbon Dioxide 25 mmol/L (22-29); Chloride 105 mmol/L (96-108); Cholesterol 166 mg/dL (<200); Estimated Glomerular Filt Rate > 60; Glucose Fasting 101 mg/dL (60-99); HDL Cholesterol 39 mg/dL (>40); LDL Cholesterol Calculated 105 mg/dL (<100); Sodium 138 mmol/L (135-145); Total Protein 6.9 g/dL (6.5-8.0); Triglycerides 111 mg/dL (<150)
--- OUTSIDE RECORDS SUMMARY | 2024-08-18 14:50 | XMS_ITS | Clinical Summary ---
Author Organization [facility] Address [address] [place] [address] Care Team Providers Care Leg Breaker Name Role Phone Pcp, No Unavailable Unavailable Keith Gatica DO Unavailable Pcp, No Primary Care Provider Unavailabl e [...] 11:37 AM 11/03/2016 6:08 PM Care Teams Leg Breaker Relationship Specialty Start Date End Date Pcp, No PCP - General General Medicine 10/26/16 Pcp, No Physician General Medicine 10/24/16 Keith Gatica DO [address] [place] [address] Plans Examiner Cardiovascular Disease 10/24/16
--- OUTSIDE RECORDS SUMMARY | 2024-08-18 14:50 | XMS_ITS | Encounter Summary ---
Author Organization [facility] Address [address] [place] [address] Care Team Providers Care Trout Farmer Name Role Phone Pcp, No Primary Care Provider Unavailabl e Pcp, No Unavailable Unavailable Keith Gatica DO Unavailable [phone] Pcp, No Primary Care Provider Unavailabl e Encounter Details Date Type Department Care Team (Late st Contact Info) Description 09/26/2016 Scanned Document [facility] [place] [address] Naila Jauregui MD [address] [address] Social History Tobacco Use Types Packs/Day Years Used Date Smoking Tobacco: Never Assessed Sex and Gender Information Value Date Recorded Sex Assigned at Not on file Gender Identity Not on file Sexual Orientation Not on file documented as of this encounter Plan of Treatment Not on file documented as of this encounter Visit Diagnoses Not on filedocumented in this encounter Care Teams Trout Farmer Relationship Specialty Start Date End Date Pcp, No PCP - General General Medicine 09/25/16 10/21/16 Pcp, No PCP - General General Medicine 10/26/16 Pcp, No Physician General Medicine 10/24/16 Keith Gatica DO [address] [place] [address] Heavy Equipment Sales Associate Cardiovascular Disease 10/24/16 documented as of this encounter
--- OUTSIDE RECORDS SUMMARY | 2024-08-18 14:50 | XMS_ITS | Encounter Summary ---
Author Organization [facility] Address [address] [place] [address] Care Team Providers Care Cover Stripper Name Role Phone Pcp, No Unavailable Unavailable Keith Gatica DO Unavailable [phone] Pcp, No Primary Care Provider Unavailabl e Encounter Details Date Type Department Care Team (Late st Contact Info) Description 02/26/2017 Abstract [facility] [place] [address] Samantha Mccoy, KIRSTEN [address] [address] Social History Tobacco Use Types Packs/Day Years [...] on filedocumented in this encounter Care Teams Cover Stripper Relationship Specialty Start Date End Date Pcp, No PCP - General General Medicine 10/26/16 Pcp, No Physician General Medicine 10/24/16 Keith Gatica DO [address] [place] [address] Air Quality Engineer Cardiovascular Disease 10/24/16 documented as of this encounter
--- OUTSIDE RECORDS SUMMARY | 2024-08-18 14:50 | XMS_ITS | Encounter Summary ---
Author Organization [facility] Address [address] [place] [address] Care Team Providers Care Senior Linux Unix Administrator Name Role Phone Pcp, No Primary Care Provider Unavailabl e Pcp, No Unavailable Unavailable Keith Gatica DO Unavailable [phone] Pcp, No Primary Care Provider Unavailabl e Encounter Details Date Type Department Care Team (Late st Contact Info) Description 09/27/2016 Abstract [facility] [place] [address] Samantha Mccoy, RN [address] [place] [address] Social History Tobacco Use Types Packs/Day Years [...] on filedocumented in this encounter Care Teams Senior Linux Unix Administrator Relationship Specialty Start Date End Date Pcp, No PCP - General General Medicine 09/25/16 10/21/16 Pcp, No PCP - General General Medicine 10/26/16 Pcp, No Physician General Medicine 10/24/16 Keith Gatica DO [address] [place] [address] Spot Machine Operator Cardiovascular Disease 10/24/16 documented as of this encounter
--- OUTSIDE RECORDS SUMMARY | 2024-08-18 14:50 | XMS_ITS | Clinical Summary ---
Author Organization [facility] Address [address] [place] [address] Care Team Providers Care Operating Room Surgical Technician Name Role Phone Barbara Ray MD Primary Care Provider [phone] Surgical History Surgery Date Site/Laterality Comments OTHER [...] Documents on File Type Date Recorded Patient Photo Editor Expl anation Health Care Decision (hx) 04/23/2016 AD WALKER DIRECTIVE Health Care Decision (hx) 04/23/2016 AD WALKER DIRECTIVE Health Care Decision (hx) 04/23/2016 AD WALKER DIRECTIVE Health Care Decision (hx) 04/23/2016 AD WALKER DIRECTIVE Health Care Decision (hx) 04/23/2016 AD WALKER DIRECTIVE Care Teams Operating Room Surgical Technician Relationship Specialty Start Date End Date Barbara Ray MD PCP - General Internal Medicine 09/04/18
--- OUTSIDE RECORDS SUMMARY | 2024-08-18 14:50 | XMS_ITS | Encounter Summary ---
Author Organization [facility] Address [address] [place] [address] Care Team Providers Care Machine Design Checker Name Role Phone Pcp, No Primary Care Provider Unavailabl e Pcp, No Unavailable Unavailable Keith Gatica DO Unavailable [phone] Pcp, No Primary Care Provider Unavailabl e Encounter Details Date Type Department Care Team (Latest Contact Info) Description 10/04/2016 Prep for Surgery [facility] [place] [address] Samantha Mccoy, KIRSTEN [address] [place] [address] CAD, multiple vessel (Primary Dx); Preop testing [...] more information on this test, go to: http://education.NXTM/faq/NZK124 Blood specimen (specimen) Blood specimen / Unknown 10/22/2016 1:02 PM EDT 10/22/2016 1:02 PM EDT Narrative [facility] - 10/23/2016 6:25 AM EDT FASTING:NO Resulting Agency Comment Performing Organization Information: ?Site ID: [id number] ?Name: [email or web address] ?Address: [address] [place] [address], [place] [address] ?Director: Sumaya Sheldon MD Naila Jauregui MD LAB BLOOD ORDERABLES [facility] [address] [place] [address], [place] [address] * Basic Metabolic Panel (10/22/2016 1:02 PM EDT) Glucose 99 65 - 99 mg/dL [facility] Comment: ? Fasting reference interval Blood Urea Nitrogen (BUN) 19 7 - 25 mg/dL [facility] Creatinine 1.01 0.70 - 1.18 mg/dL [facility] Comment: For patients >49 years of age, the reference limit for Creatinine is approximately 13% higher for people identified as -Mauritian. eGFR Non- 73 > OR = 60 [...] Performing Organization Information: ?Site ID: [id number] ?Name: [email or web address] ?Address: [address] [place] [phone] ?Director: Sumaya Sheldon MD Naila Jauregui MD LAB BLOOD ORDERABLES [facility] [address] [place] [address] * Complete Blood Count, with Differential [...] Performing Organization Information: ?Site ID: [id number] ?Name: [email or web address] [facility] ?Address: [address] [place] [address], [place] [address] ?Director: Sumaya Sheldon MD Naila Jauregui MD LAB BLOOD ORDERABLES [facility] [address], [place], [place] [phone] documented in this encounter Visit Diagnoses Diagnosis CAD, multiple vessel- Primary Preop testing Unspecified pre-operative examination documented in this encounter Care Teams Machine Design Checker Relationship Specialty Start Date End Date Pcp, No PCP - General General Medicine 09/25/16 10/21/16 Pcp, No PCP - General General Medicine 10/26/16 Pcp, No Physician General Medicine 10/24/16 Keith Gatica DO [address] [place] [address] Vocational Education Professional Cardiovascular Disease 10/24/16 documented as of this encounter
[2024-08-18 17:31] LABS: Alkaline Phosphatase 86 U/L (39-117)
== END 2024-08-18 10:59 | disposition home or self-care (01) ==
LOC: HO.HMGCLDS 10:58
PROVIDERS: PCP Internal Medicine; Visit Provider Internal Medicine
DX: Z23 Encounter for immunization (principal); I10 Essential (primary) hypertension; E78.5 Hyperlipidemia, unspecified; I63.9 Cerebral infarction, unspecified; C34.90 Malignant neoplasm of unspecified part of unspecified bronchus or lung; I71.40 Abdominal aortic aneurysm, without rupture, unspecified; I73.9 Peripheral vascular disease, unspecified; J44.9 Chronic obstructive pulmonary disease, unspecified
CPT/HCPCS: 36415; 80053; 80061; 85025; 90471; 90677; 96127; 99212